=== PATIENT | female | born 1945 ===

== ENCOUNTER 2025-08-06 12:45 | Inpatient (IN) | payer OTHER ==
[~2025-08-06] VITALS: Ht 182.9 cm; Wt 59.4 kg
[~2025-08-06 12:45] MED LIST: ASA81 MG; CLINDAMYCIN HC300 MG; LISINOPRIL10 MG; SIMVASTATIN20 MG; SYNTHROID150 MCG
[2025-08-09] MEDS ORDERED: PROTONIX20 MG PO (14:00)
[2025-08-09] MEDS ORDERED: AMLODIPINE-OLM1 EAC2 (14:01)
[2025-08-09] MEDS ORDERED: SERTRALINE20 MG/1 ML (14:01)
[2025-08-09] MEDS ORDERED: METFORMIN HCL1000 M2 PO (14:01)
[2025-08-09] MEDS ORDERED: LIPITOR20 MG (14:02)
[2025-08-09 17:42] LABS: BUN CREA RATIO 31.0 (7.0-25.0); CREATININE SERUM 1.6 mg/dL (0.55-1.02); GFR 31.01; OSMOLALITY SERUM 305.0 MOSM/KG (275-295)
[2025-08-09 17:51] LABS: GLUCOSE FASTING 286.0 mg/dL (65-100)
[2025-08-12] MEDS ORDERED: METRONIDAZOLE/SODIUM CHLORIDE 500 MG/100 ML PIGGYBACK IV ONE ×2 (10:16→16:56)
[2025-08-12] MEDS ORDERED: CEFTRIAXONE SODIUM 2,000 MG VIAL ONE (10:16)
[2025-08-12] MEDS ORDERED: POVIDONE-IODINE 118 ML BOTT TOP ONE (11:40)
[2025-08-12] MEDS ORDERED: LIDOCAINE HCL 1%/EPINEPHRINE 20ML VIAL IJ ONE (11:40)
[2025-08-12] MEDS ORDERED: DIBUCAINE 30 GM TUBE ONE (11:40)
[2025-08-12] MEDS ORDERED: BUPIVACAINE HCL/MPF 0.5% 30ML VIAL ONE (11:40)
[2025-08-12] MEDS ORDERED: ONDANSETRON HCL 2 MG/ML VIAL IV PRN (13:45)
[2025-08-12] MEDS ORDERED: OxyCODONE HCL 5 MG TABLET (ROXICODONE) PO PRN (13:45)
[2025-08-12] MEDS ORDERED: MORPHINE SULFATE 4 MG/ML CARTRIDGE IV PRN (13:45)
[2025-08-12] MEDS ORDERED: DEXTROSE 50 % IN WATER 0.5 G/ML DISP.SYRIN IV PRN (13:45)
[2025-08-12] MEDS ORDERED: 0.9 % SODIUM CHLORIDE 1,000 ML IV SCH (13:45)
[2025-08-12] MEDS ORDERED: ACETAMINOPHEN 500 MG GEL..CAP PO SCH (14:00)
[2025-08-12] MEDS ORDERED: HYOSCYAMINE SULFATE 0.125 MG TAB.SUBL SL SCH (17:00)
[2025-08-12] MEDS ORDERED: METRONIDAZOLE/SODIUM CHLORIDE 500 MG/100 ML PIGGYBACK IV SCH (17:00)
[2025-08-12] MEDS ORDERED: GABAPENTIN 300 MG CAPSULE PO SCH (17:00)
[2025-08-12] MEDS ORDERED: hydrALAZINE HCL 20 MG VIAL IV PRN (18:30)
[2025-08-12] MEDS ORDERED: FAMOTIDINE/PF 20 MG/2 ML VIAL IV PUSH SCH (21:00)
[2025-08-12] MEDS ORDERED: CELECOXIB 200 MG CAPSULE PO SCH (21:00)
[2025-08-13 00:44] VITALS: BP 135/69; O2SAT 95
[2025-08-13] MEDS ORDERED: LEVOTHYROXINE SODIUM 25 MCG TABLET PO SCH (06:00)
[2025-08-13 06:33] LABS: BASO % 0.4 % (0.1-1.2); EOS # 0.41 (0.04-0.54); EOS % 5.7 % (0.7-7.0); LYMPH # 1.02 (1.18-3.74); LYMPH % 14.2 % (19.3-53.1); MEAN PLATELET VOLUME 11.30 fl (9.4-12.4); MONO # 0.59 (0.24-0.82); MONO % 8.2 % (4.7-12.5); NEUT # 5.13 (1.56-6.13); NEUT % 71.2 % (34.0-71.1); RED CELL DISTRIBUTION WIDTH 14.9 % (11.6-14.4)
[2025-08-13 06:56] LABS: BUN CREA RATIO 32.0 (7.0-25.0); CREATININE SERUM 0.79 mg/dL (0.55-1.02); GFR 70.02; GLUCOSE FASTING 116.0 mg/dL (65-100); OSMOLALITY SERUM 294.0 MOSM/KG (275-295)
[2025-08-13 08:00] VITALS: BP 157/69; O2SAT 97
[2025-08-13] MEDS ORDERED: PEPCID AC20 MG PO (08:12)
[2025-08-13] MEDS ORDERED: HYOSCYAMINE0.125 M1 SL (08:12)
[2025-08-13] MEDS ORDERED: TRAM1TAB98 PO (08:12)
[2025-08-13] MEDS ORDERED: AMLODIPINE BESYLATE 5 MG TABLET PO SCH (09:00)
[2025-08-13] MEDS ORDERED: SERTRALINE HCL 50 MG TABLET PO SCH (09:00)
[2025-08-13] MEDS ORDERED: LISINOPRIL 20 MG TABLET PO SCH (09:00)
[2025-08-13] MEDS ORDERED: LISINOPRIL 10 MG TABLET PO SCH (09:00)
[2025-08-13] MEDS ORDERED: MAGNESIUM SULFATE IN WATER 50 ML IV NR (09:00)
[2025-08-13] MEDS ORDERED: ATORVASTATIN CALCIUM 20 MG TABLET PO SCH (17:00)
[2025-08-13] MEDS ORDERED: ENOXAPARIN SODIUM 40 MG/0.4 ML SYRINGE SUBCUTANEO SCH (17:00)
[2025-08-14] MEDS ORDERED: ENOXAPARIN SODIUM 40 MG/0.4 ML SYRINGE SUBCUTANEO SCH (09:00)
== END 2025-08-13 14:11 | disposition home or self-care (01) | DRG 331 ==
LOC: O/R 08-12 09:00 → SURH 08-12 10:15
PROVIDERS: ADMIT Surgery; ATTEND Surgery
PROC: 0DQP4ZZ Repair Rectum, Percutaneous Endoscopic Approach (ICD-10-PCS; principal; 2025-08-12 13:15)
DX: K62.3 Rectal prolapse (principal)